=== PATIENT | female | born 1960 | race Two or more races ===

== ENCOUNTER 2017-08-18 14:41 | Emergency (ER) | payer OTHER ==
--- NOTE | 2017-08-18 14:51 | PDOC ---
Rapid Medical Evaluation Time Seen by Provider: 08/18/17 14:47 Medical Evaluation: 08/18/17 14:49 I have performed a brief in-person evaluation of this patient. The patient presents with a chief complaint of: Malaise w/ productive cough, pleuritic CP and nasal congestion x 4 days. H/o hypothyroid. Pertinent physical exam findings:Stable w/ unremarkable exam I have ordered the following:nothing The patient will proceed to the ED for further evaluation.
[2017-08-18 14:52] VITALS: BP 145/63; PULSE 85; TEMP 98.4; BMI 29.2
[2017-08-18] MEDS ORDERED: ALBUTEROL SO4 0.083% IH SOL 2.5 MG/3 ML VIAL.NEB. NEB ONE ×2 (15:27→15:30)
[2017-08-18] MEDS ORDERED: IBUPROFEN 600 MG TABLET (FP) PO ONE ×2 (15:45→15:47)
--- NOTE | 2017-08-18 15:50 | PDOC ---
History of Present Illness - General Chief Complaint: Respiratory Stated Complaint: CHEST PAIN Time Seen by Provider: 08/18/17 14:47 History Source: Patient Exam Limitations: No Limitations - History of Present Illness Initial Comments: 08/18/17 15:43 c/o cough and sore throat for 2 weeks no fever , recently came from [place] for the holidays, states got sick when she got to [place] . no vomiting or diarrhea history of hypothyroid, bronchitis. Pt states the family all have colds. Pt denies chest pain or nausea, no radiating pain. 08/18/17 18:59 Past History - Past Medical History Allergies/Adverse Reactions: Allergies Allergy/AdvReac Type Severity Reaction Status Date / Time No Known Allergies Allergy Verified 08/18/17 14:52 Home Medications: Ambulatory Orders Albuterol Sulfate Inhaler - [Ventolin HFA Inhaler -] 1 - 2 inh PO QID #1 inhaler 08/18/17 Azithromycin [Zithromax 250mg Tablets -] 250 mg PO UTDICT #6 tab 08/18/17 Benzonatate [Tessalon Pearls -] 100 mg PO TID #21 capsule 08/18/17 Levothyroxine [Synthroid -] 75 mcg PO DAILY 08/18/17 COPD: No - Suicide/Smoking/Psychosocial Hx Smoking History: Former smoker Have you smoked in the past 12 months: No Information on smoking cessation initiated: No Hx Alcohol Use: No Drug/Substance Use Hx: No Substance Use Type: None Respiratory Specific PMHX - Complaint Specific PMHX Bronchitis: Yes Review of Systems - Review of Systems Able to Perform ROS?: Yes Is the patient limited Arabic proficient: No Constitutional: No: Symptoms Reported HEENTM: Yes: Symptoms Reported Respiratory: Yes: Symptoms reported *Physical Exam - Vital Signs Last Vital Signs Temp Pulse Resp BP Pulse Ox 98.4 F 85 18 145/63 97 08/18/17 14:48 08/18/17 14:48 08/18/17 14:48 08/18/17 14:48 08/18/17 14:48 - Physical Exam General Appearance: Yes: Nourished, Appropriately Dressed HEENT: positive: EOMI, STACI, Normal ENT Inspection, TMs Normal, Pharynx Normal Neck: positive: Supple. negative: Tender, Lymphadenopathy (R), Lymphadenopathy (L) Respiratory/Chest: positive: Lungs Clear, Normal Breath Sounds, Other (couging noted ). negative: Chest Tender, Paradoxal Breathing, Crackles, Rales, Stridor , Wheezing Cardiovascular: positive: Regular Rhythm, Regular Rate Gastrointestinal/Abdominal: positive: Normal Bowel Sounds, Soft Musculoskeletal: positive: Normal Inspection Extremity: positive: Normal Capillary Refill, Normal Inspection, Normal Range of Motion Integumentary: positive: Normal Color, Dry, Warm Neurologic: positive: Fully Oriented, Alert, Normal Mood/Affect, Normal Response , Motor Strength 12/20 ED Treatment Course - Medications Given in the ED: ED Medications Discontinued Medications Generic Name Dose Route Start Last Admin Trade Name Freq PRN Reason Stop Dose Admin Albuterol Sulfate 1 amp 08/18/17 15:27 08/18/17 15:32 Ventolin 0.083% Nebulizer Soln - NEB 08/18/17 15:28 1 amp ONCE ONE Administration Medical Decision Making - Medical Decision Making 08/18/17 15:44 cc: cough sore throat taking OTC meds with no relief vitals stable no acute distress will give albuterol neb pt has reproducable chest pain with cough will give motrin now 08/18/17 18:58 *DC/Admit/Observation/Transfer Diagnosis at time of Disposition: Upper respiratory tract infection - Discharge Dispostion Disposition: HOME Condition at time of disposition: Good - Prescriptions Prescriptions: Albuterol Sulfate Inhaler - [Ventolin HFA Inhaler -] 1 - 2 inh PO QID #1 inhaler Azithromycin [Zithromax 250mg Tablets -] 250 mg PO UTDICT #6 tab Benzonatate [Tessalon Pearls -] 100 mg PO TID #21 capsule - Referrals - Patient Instructions Additional Instructions: take the medications as prescribed drink at least 1-2 liters of water a day get pleanty of rest and increase vitamin C and Zinc in your diet follow with your doctor in 1-3 days if not improving return to ER for any worsening symptoms - Post Discharge Activity
== END 2017-08-18 15:56 | disposition home or self-care (01) ==
LOC: JER 14:41 → EDBD 14:41 → JERFT 14:41
PROC: 3E0F7GC Introduction of Other Therapeutic Substance into Respiratory Tract, Via Natural or Artificial Opening (ICD-10-PCS; principal; 2017-08-18)
DX: J06.9 Acute upper respiratory infection, unspecified (principal); E03.9 Hypothyroidism, unspecified
CPT/HCPCS: 99281-25